=== PATIENT | male | born 1995 | race Caucasian/White ===

== ENCOUNTER 2017-05-07 00:54 | Emergency (ER) | payer SELFPAY ==
[2017-05-07] MEDS ORDERED: NS 1,000 ML IV ONE (00:58)
[2017-05-07] MEDS ORDERED: ONDANSETRON 4 MG/2 ML VIAL IVP ONE (00:58)
--- NOTE | 2017-05-07 01:00 | EDPHY ---
H & P HPI/ROS: HPI CHIEF COMPLAINT: Alcohol Intoxication HISTORY OF PRESENT ILLNESS: This patient is a 21-year-old male, he presents emergency room by EMS with acute alcohol intoxication. Unable to ambulate vomiting on himself. According to EMS he drank a large amount of alcohol this evening. No co ingestion. No trauma. Upon arrival to the emergency room he is somnolent and sleepy. Unable to answer my questions. Vomit down the front of him. Past Medical History: Depression Past Surgical History: Unknown surgical history Social History: [employer] student, alcohol this evening. Family History: Noncontributory ROS REVIEW OF SYSTEMS: Limited due to patient's acute alcohol intoxication. Exam Constitutional Intoxicated, triage nursing summary reviewed, vital signs reviewed, Sleepy, smells of alcohol Eyes normal conjunctivae and sclera, horizontal beating nystagmus consistent acute alcohol intoxication, otherwise pupils equal and react to light HENT normal inspection, atraumatic, moist mucus membranes, no epistaxis, neck supple/ no meningismus, no raccoon eyes. Respiratory clear to auscultation bilaterally, normal breath sounds, no respiratory distress, no wheezing. Cardiovascular rate normal, regular rhythm, no murmur, no edema, distal pulses normal. Gastrointestinal soft, non-tender, no rebound, no guarding, normal bowel sounds, no distension, no pulsatile mass. Genitourinary no CVA tenderness. Musculoskeletal no midline vertebral tenderness, full range of motion, no calf swelling, no tenderness of extremities, no meningismus, good pulses, neurovascularly intact. Skin pink, warm, & dry, no rash, skin atraumatic. Neurologic sleepy, intoxicated with alcohol,, alert and oriented x 3, AAOx3, moves all 4 extremities equally, motor intact, sensory intact, CN II-XII intact , , normal vision, normal speech. Psychiatric normal mood/affect. Heme/Lymph/Immune no lymphadenopathy. Differential Diagnosis: Includes but is not limited to in a particular order acute alcohol intoxication, alcohol abuse, dehydration, electrolyte abnormality , nausea vomiting from acute alcohol intoxication Medical Decision Making: Plan for this patient IV fluid bolus, 4 mg IV Zofran nausea vomiting, monitor for worsening of condition. Monitor for sobriety. Check serum alcohol level. Re-evaluation: Serum alcohol 423 time of this 1:35 a.m.. [id number]: Patient up ambulating throughout the emergency room stable gait. Answers my questions appropriately. He has no focal complaints. He will be discharged to the [facility]. Source: Patient, EMS Constitutional: Initial Vital Signs Temperature (C) 36.7 C 05/07/17 01:00 Heart Rate 87 05/07/17 01:00 Respiratory Rate 16 05/07/17 01:00 Blood Pressure 112/70 05/07/17 01:00 O2 Sat (%) 97 05/07/17 01:00 O2 Delivery Mode Nasal Cannula O2 (L/minute) 2 Allergies/Adverse Reactions: No Known Allergies Allergy (Unverified 05/07/17 01:05) Home Medications: Medication Instructions Recorded Adderall 10 MG (*) 05/07/17 Medical Decision Making - Data Points Laboratory Results: Laboratory Results 05/07/17 01:00 05/07/17 01:00 05/07/17 05/07/17 01:00 01:00 WBC 8.46 10^3/uL 10^3/uL (3.80-9.50) RBC 5.21 10^6/uL 10^6/uL (4.40-6.38) Hgb 17.1 g/dL g/dL (13.7-17.5) Hct 48.9 % % (40.0-51.0) MCV 93.9 fL fL (81.5-99.8) MCH 32.8 pg pg (27.9-34.1) MCHC 35.0 g/dL g/dL (32.4-36.7) RDW 13.2 % % (11.5-15.2) Plt Count 246 10^3/uL 10^3/uL (150-400) MPV 8.6 fL L fL (8.7-11.7) Neut % (Auto) 62.0 % % (39.3-74.2) Lymph % (Auto) 29.6 % % (15.0-45.0) Will % (Auto) 6.9 % % (4.5-13.0) Eos % (Auto) 0.4 % L % (0.6-7.6) Baso % (Auto) 0.7 % % (0.3-1.7) Nucleat RBC Rel Count 0.0 % % (0.0-0.2) Absolute Neuts (auto) 5.26 10^3/uL 10^3/uL (1.70-6.50) Absolute Lymphs (auto) 2.50 10^3/uL 10^3/uL (1.00-3.00) Absolute Monos (auto) 0.58 10^3/uL 10^3/uL (0.30-0.80) Absolute Eos (auto) 0.03 10^3/uL 10^3/uL (0.03-0.40) Absolute Basos (auto) 0.06 10^3/uL 10^3/uL (0.02-0.10) Absolute Nucleated RBC 0.00 10^3/uL 10^3/uL (0-0.01) Immature Gran % 0.4 % % (0.0-1.1) Immature Gran # 0.03 10^3/uL 10^3/uL (0.00-0.10) Sodium 148 mEq/L H mEq/L (134-144) Potassium 3.5 mEq/L mEq/L (3.5-5.2) Chloride 106 mEq/L mEq/L (97-110) Carbon Dioxide 22 mEq/l mEq/l (22-31) Anion Gap 20 mEq/L H mEq/L (8-16) BUN 11 mg/dL mg/dL (7-23) Creatinine 0.8 mg/dL mg/dL (0.7-1.3) Estimated GFR > 60 Glucose 117 mg/dL H mg/dL (70-100) Calcium 9.1 mg/dL mg/dL (8.5-10.4) Ethyl Alcohol 422 mg/dL H* mg/dL (0-10) Medications Given: Discontinued Medications Sodium Chloride (Ns) 1,000 mls @ 0 mls/hr IV ONCE ONE PRN Reason: Wide Open Stop: 05/07/17 00:59 Last Admin: 05/07/17 01:11 Dose: 1,000 mls Midazolam HCl (Versed) 4 mg IVP EDNOW ONE Stop: 05/07/17 01:40 Last Admin: 05/07/17 01:47 Dose: 4 mg Ondansetron HCl (Zofran) 4 mg IVP EDNOW ONE Stop: 05/07/17 00:59 Last Admin: 05/07/17 01:08 Dose: 4 mg Departure - Departure Disposition: Home, Routine, Self-Care Clinical Impression: Alcoholic intoxication Qualifiers: Complication of substance-induced condition: uncomplicated Qualified Code(s): F10.920 - Alcohol use, unspecified with intoxication, uncomplicated Condition: Good Instructions: Alcohol Intoxication (ED), Abuse of Alcohol (ED) Referrals: Patient,NotPresent [Primary Care Provider] - As per Instructions
[2017-05-07 01:08] LABS: PLATELET COUNT 246 10^3/uL (150-400)
[2017-05-07] MEDS ORDERED: MIDAZOLAM 2 MG/2 ML VIAL IVP ONE (01:39)
[2017-05-07 03:38] VITALS: O2SAT 97
[2017-05-07 06:01] VITALS: RESP 16
[2017-05-07 06:03] VITALS: BP 109/67; PULSE 67; TEMP 97.9
== END 2017-05-07 06:02 | disposition home or self-care (01) ==
DX: F10.920 Alcohol use, unspecified with intoxication, uncomplicated (principal); R11.10 Vomiting, unspecified
CPT/HCPCS: 96374; G0480; J2250; J2405